=== PATIENT | female | born 1995 | race Two or more races ===

== ENCOUNTER 2019-03-30 12:01 | Emergency (ER) | payer MEDICAID ==
--- NOTE | 2019-03-30 14:38 | EDM.PDOC ---
ED HPI GENERAL MEDICAL PROBLEM - General Chief Complaint: Genitourinary Problem Stated Complaint: UTI Time Seen by Provider: 03/30/19 14:37 Source of Information: Reports: Patient - History of Present Illness INITIAL COMMENTS - FREE TEXT/NARRATIVE: HISTORY AND PHYSICAL: History of present illness: [Patient presents with vaginal discharge and dysuria and no fever nausea vomiting chills sweats presents with her sexual partner states they are in a monogamous relationship] Review of systems: As per history of present illness and below otherwise all systems reviewed and negative. Past medical history: As per history of present illness and as reviewed below otherwise noncontributory. Surgical history: As per history of present illness and as reviewed below otherwise noncontributory. Social history: No reported history of drug or alcohol abuse. Family history: As per history of present illness and as reviewed below otherwise noncontributory. Physical exam: HEENT: Atraumatic, normocephalic, pupils reactive, negative for conjunctival pallor or scleral icterus, mucous membranes moist, throat clear, neck supple, nontender, trachea midline. Lungs: Clear to auscultation, breath sounds equal bilaterally, chest nontender. Heart: S1S2, regular, negative for clicks, rubs, or JVD. Abdomen: Soft, nondistended, nontender. Negative for masses or hepatosplenomegaly. Negative for costovertebral tenderness. Pelvis: Stable nontender. Genitourinary: Sternal exam within normal limits no mass scar or lesion; internal exam no mass scar or lesion mild cervical motion tenderness scant discharge no older Rectal: Deferred. Extremities: Atraumatic, negative for cords or calf pain. Neurovascular unremarkable. Neuro: Awake, alert, oriented. Cranial nerves II through XII unremarkable. Cerebellum unremarkable. Motor and sensory unremarkable throughout. Exam nonfocal. Diagnostics: [UA GC Chlamydia ] Therapeutics: [[employer] is all Cipro ] Impression: [UTI Vaginal discharge ]-Consistent with bacterial vaginosis Definitive disposition and diagnosis as appropriate pending reevaluation and review of above. Vaginal Pain Score (Numeric/FACES): 9 - Related Data Allergies Allergy/AdvReac Type Severity Reaction Status Date / Time No Known Allergies Allergy Verified 03/30/19 12:32 Home Meds: Home Meds . [No Known Home Meds] 03/30/19 [History] Past Medical History - Past Health History Medical/Surgical History: Denies Medical/Surgical History Social & Family History - Family History Family Medical History: Noncontributory - Tobacco Use Smoking Status *Q: Never Smoker Second Hand Smoke Exposure: No - Caffeine Use Caffeine Use: Reports: None - Recreational Drug Use Recreational Drug Use: No ED ROS GENERAL - Review of Systems Review Of Systems: See Below ED EXAM, GENERAL - Physical Exam Exam: See Below Course - Vital Signs Last Recorded V/S: Last Vital Signs Temp 98.6 F 03/30/19 12:33 Pulse 66 03/30/19 12:33 Resp 16 03/30/19 12:33 BP 99/61 03/30/19 12:33 Pulse Ox 99 03/30/19 12:33 - Orders/Labs/Meds Orders: Active Orders 24 hr Category Date Time Status CHLAMYDIA AND GONORRHEA BY TMA Stat Lab 03/30/19 14:26 Received CULTURE URINE [RM] Stat Lab 03/30/19 12:41 Received TRICH/JACKIE/CAND BY DNA PROBE [MOLEC] Stat Lab 03/30/19 14:26 Received Labs: Laboratory Tests 03/30/19 03/30/19 Range/Units 12:41 12:41 Urine Color YELLOW Urine Appearance CLEAR Urine pH 6.0 (5.0-8.0) Ur Specific [place] >= 1.030 (1.001-1.035) Urine Protein NEGATIVE (NEGATIVE) mg/dL Urine Glucose (UA) NEGATIVE (NEGATIVE) mg/dL Urine Ketones NEGATIVE (NEGATIVE) mg/dL Urine Occult Blood SMALL H (NEGATIVE) Urine Nitrite NEGATIVE (NEGATIVE) Urine Bilirubin NEGATIVE (NEGATIVE) Urine Urobilinogen 0.2 (<2.0) EU/dL Ur Leukocyte Esterase SMALL H (NEGATIVE) Urine RBC 5-10 (0-2/HPF) Urine WBC 5-10 (0-5/HPF) Ur Epithelial Cells FEW (NONE-FEW) Urine Bacteria 1+ H (NEGATIVE) Urine HCG, Qual NEGATIVE (NEGATIVE) Meds: Medications Discontinued Medications Generic Name Dose Route Start Last Admin Trade Name Freq PRN Reason Stop Dose Admin Ciprofloxacin 500 mg 03/30/19 15:36 Ciprofloxacin Hcl PO 03/30/19 15:37 ONETIME ONE Metronidazole 250 mg 03/30/19 15:36 Metronidazole PO 03/30/19 15:37 ONETIME ONE Departure - Departure Time of Disposition: 15:38 Disposition: Home, Self-Care 01 Condition: Good Clinical Impression: UTI, Urinary tract infectious disease - Discharge Information Referrals: PCP,Unknown [Primary Care Provider] - Forms: ED Department Discharge Additional Instructions: The following information is given to patients seen in the emergency department who are being discharged to home. This information is to outline your options for follow-up care. We provide all patients seen in our emergency department with a follow-up referral. The need for follow-up, as well as the timing and circumstances, are variable depending upon the specifics of your emergency department visit. If you don't have a primary care physician on staff, we will provide you with a referral. We always advise you to contact your personal physician following an emergency department visit to inform them of the circumstance of the visit and for follow-up with them and/or the need for any referrals to a consulting specialist. The emergency department will also refer you to a specialist when appropriate. This referral assures that you have the opportunity for follow-up care with a specialist. All of these measure are taken in an effort to provide you with optimal care, which includes your follow-up. Under all circumstances we always encourage you to contact your private physician who remains a resource for coordinating your care. When calling for follow-up care, please make the office aware that this follow-up is from your recent emergency room visit. If for any reason you are refused follow-up, please contact the [facility] emergency department at and asked to speak to the emergency department charge nurse. - My Orders Last 24 Hours: My Active Orders 03/30/19 12:41 CULTURE URINE [RM] Stat 03/30/19 14:26 CHLAMYDIA AND GONORRHEA BY TMA Stat TRICH/JACKIE/CAND BY DNA PROBE [MOLEC] Stat - Assessment/Plan Last 24 Hours: My Active Orders 03/30/19 12:41 CULTURE URINE [RM] Stat 03/30/19 14:26 CHLAMYDIA AND GONORRHEA BY TMA Stat TRICH/JACKIE/CAND BY DNA PROBE [MOLEC] Stat
[2019-03-30] MEDS ORDERED: metroNIDAZOLE 250 MG Tab PO ONE (15:36)
[2019-03-30] MEDS ORDERED: Ciprofloxacin 500 MG Tab PO ONE (15:36)
== END 2019-03-30 15:52 | disposition home or self-care (01) ==
LOC: MW.ED 12:01
DX: N39.0 Urinary tract infection, site not specified (principal); N89.8 Other specified noninflammatory disorders of vagina
CPT/HCPCS: 81001; 81025; 87070; 87086; 87480; 87491; 87510; 87591; 87660; 99283; A9270